=== PATIENT | male | born 1960 | race Caucasian/White ===

== ENCOUNTER 2017-07-01 09:18 | Emergency (ER) | payer OTHER ==
[~2017-07-01] VITALS: Ht 182.9 cm; Wt 81.8 kg
[2017-07-01 09:24] VITALS: BP 162/95; PULSE 86; RESP 15; O2SAT 99
[2017-07-01 09:57] LABS: BASOPHILS % (AUTO) 0.3 % (0-3); EOSINOPHILS % (AUTO) 2.6 % (0-5); MONOCYTES % (AUTO) 8.3 % (4-12); Mean Corpuscular Hemoglobin 30.2 pg (27.0-35.0); Mean Corpuscular Volume 90.3 fL (81-100); NEUTROPHILS % (AUTO) 67.1 % (40-74); Platelet Count 236 bil/L (150-400)
--- NOTE | 2017-07-01 10:03 | ED.REPORT ---
HPI-Chest Pain 40 and Over Date of Service Jul 01, 2017 ED Provider: Gaetano Renteria Patient is a 57 year old male who presents to the ED after being referred by his PCP complaining of chest burning and pressure onset 4-5 days ago. His pain is relieved by drinking cold water and exacerbated by deep inspiration and activity. Associated symptoms include fatigue. He denies extremity pain, SOB, vomiting, diarrhea, ankle swelling, or any other symptoms. He took Advil at home without relief. Nursing Notes Stated Complaint: CHEST PRESSURE/BURNING FEELING Chief Complaint: Chest Pain Nursing Notes Reviewed: Yes Allergies: Coded Allergies: No Known Allergies (Unverified , 07/01/17) Scheduled PRN Ibuprofen (Ibuprofen) 800 Mg Tablet 800 MG PO TID PRN PRN For Pain General Time Seen by MD: 10:02 Chief Complaint Chest pressure Hx Obtained From: Patient Arrived By: Walk-in Sudden in Onset?: Yes Onset Occurred: 4 days ago Symptom Duration: Intermittent Similar Sx Previous: No Risk Factors )( CAD Risk Stratification No Diabetes mellitus, No Hyperlipidemia, No Hypertension Risk factors reviewed )( TAD Risk Stratification No Hypertension, No Risk factors reviewed )( PE Risk Stratification No , No , No Previous PE, No Surgery Last 60 Days Risk factors reviewed Past Medical History Past Medical History Denies Past Surgical History Jaw surgery Smoking History Current Every Day Smoker Social History Other Social History: Good social support, Ambulatory Status Independent Review of Systems Constitutional: Reports: Fatigue Respiratory: Denies: Shortness of breath Cardiovascular: Reports: Chest pain GI: Denies: Diarrhea, Vomiting Musculoskeletal: Denies: Extremity pain, Joint swelling Complete sys rev & neg: except as marked. Physical Exam Initial Vital Signs Vital Signs (First) Date Time Temp Pulse Resp B/P Pulse Ox O2 Delivery O2 Flow Rate FiO2 07/01/17 09:24 36.3 86 15 162/95 99 Room Air Initial VS: Reviewed, Vital signs normal Head / Eyes: Atraumatic, Normocephalic Skin: Warm, Dry Neurologic: Alert, Oriented, Nonfocal Psychiatric: Mood/affect normal, Behavior normal, Normal thought content General/Constitutional: Awake, Alert, No acute distress Respiratory / Chest: Atraumatic, Breath sounds NL, Breath sounds = bilat, No respiratory distress Cardiovascular: Heart rate NL, Regular rhythm, Heart sounds NL, No murmurs, No rubs Abdomen: Atraumatic, Soft, Non-tender Neck: Full range of motion, No JVD Lower Extremity / Pelvis / MS: No edema no unilateral leg swelling Interpretation & Diagnostics Lab Results Interpretation Result Diagram: 07/01/17 0955 07/01/17 0955 Test 07/01/17 09:55 White Blood Count 6.9th/mm3 (3.8-10.1) Red Blood Count 4.86mil/mm3 (4.40-5.80) Hemoglobin 14.7g/dL (13.8-17.2) Hematocrit 43.9% (41.0-50.0) Mean Corpuscular Volume 90.3fL (81-100) Mean Corpuscular Hemoglobin 30.2pg (27.0-35.0) Mean Corpuscular Hemoglobin Concent 33.5% (32.0-37.0) Red Cell Distribution Width 12.7% (12.3-15.4) Platelet Count 236bil/L (150-400) Neutrophils (%) (Auto) 67.1% (40-74) Lymphocytes (%) (Auto) 21.6% (14-46) Monocytes (%) (Auto) 8.3% (4-12) Eosinophils (%) (Auto) 2.6% (0-5) Basophils (%) (Auto) 0.3% (0-3) D-Dimer < 0.50mg/L FEU (<0.50) Sodium Level 140mEq/L (134-144) Potassium Level 4.0mEq/L (3.5-5.2) Chloride Level 100mEq/L (97-108) Carbon Dioxide Level 25mmol/L (18-29) Blood Urea Nitrogen 10mg/dL (6-24) Creatinine 0.85mg/dL (0.76-1.27) Estimat Glomerular Filtration Rate 99mL/min (>59) Glucose Level 124mg/dL (60-99) Calcium Level 9.2mg/dL (8.5-10.1) Magnesium Level 1.9mg/dL (1.6-2.6) Total Bilirubin 0.7mg/dL (0.0-1.2) Aspartate Amino Transf (AST/SGOT) 19U/L (0-50) Alanine Aminotransferase (ALT/SGPT) 16U/L (0-44) Alkaline Phosphatase 55U/L (25-150) Troponin T 0.010ug/L (0.0-0.011) Total Protein 6.7g/dL (6.4-8.4) Albumin 4.2g/dL (3.4-5.0) ECG Interpretation ECG Interpretation: sinus rate [address] elevation hyperacute T waves V3-6 with no reciprocal changes Time: 10:08 Interpreted by: ED physician ECG Interpretation: sinus rate 69 no acute ischemic changes subtle ND depression Time: 10:47 Interpreted by: ED physician X-Ray Chest Interpretation Chest Xray Interpretation: IMPRESSION: Normal for age, source of pain is not seen. Dictated by: Velasquez Xie M.D. on 07/01/2017 at 10:59 Approved by: Velasquez Xie M.D. on 07/01/2017 at 10:59 View: Portable, 1 view Interpretation / Wet Read by: Interpret - Radiologist Re-Eval/Medical Decision Med Decision/Clinical Course Findings are suspicious for pericarditis. After 4 days of ongoing constant pain his troponin is negative. Other clinical features sound more consistent with pericarditis, this along with the EKG changes which could represent pericarditis. I discussed with cardiology who reviewed his echocardiogram. We will plan to treat with ibuprofen and discharge. Return and follow-up precautions given. Time of Eval: 11:11 Re-Evaluation/Progress Note: Rechecked pt who reports that his pain is relieved by sitting forward. Discussed plan of care. Patient understands and agrees with plan. All questions addressed at this time. Time of Eval: 13:00 Re-Evaluation/Progress Note: Rechecked patient. Discussed lab and imaging results. Time of Eval: 13:12 Re-Evaluation/Progress Note: Discussed plan for discharge. Patient understands and agrees with plan. All questions addressed at this time. Consultation #1: Referral / Consult Name: Danny Gambino MD Call Returned at: 13:03 Note: Discussed pt's case. Will review imaging. Consultation #2: Referral / Consult Name: Danny Gambino MD Consulted With: Cardiology Call Returned at: 13:09 Note: Discussed pt's case. Pericarditis probable. treat with nsaids and rest return of worse, safe to DC Counseled Regarding: Diagnosis, Lab results, Need for follow-up, When/why to return to ED Discharge & Departure Primary Impression: Pericarditis Pericarditis type: unspecified type Chronicity: unspecified Qualified Code : I31.9 - Disease of pericardium, unspecified Disposition: Home Discharge Condition All VS Reviewed: Yes Condition: Stable Patient Instructions: Acute Pericarditis (ED) Additional Instructions: You have pericarditis. Take ibuprofen 800 mg 3 times a day. Follow-up with your primary care and cardiology in the next few days. Stay off of work in order to rest. Return to the ER as needed for severe worsening pain, difficulty breathing, lethargy, high fever or other concerns Referrals: Nila Valencia MD Attestation Portions of this note were transcribed by Yasmine Chang. I, Dr. Renteria personally performed the history, physical exam and medical decision-making; I reviewed and confirmed the accuracy of the information in the transcribed note. Signed by: Mitra Wood, 07/01/17 copies to: Nila Valencia MD, Timothy S DO Jul 01, 2017 10:03 YASMINE CHANG Jul 01, 2017 10:47
[2017-07-01] MEDS ORDERED: Nitroglycerin 2% 1 Gm Ointment TOPICAL SCH (10:15)
[2017-07-01] MEDS ORDERED: Ondansetron 2 mg/mL 2 mL Inj IVPUSH PRN (10:15)
[2017-07-01 10:36] LABS: TROPONIN T 0.01 ug/L (0.0-0.011)
[2017-07-01 10:38] VITALS: BP 129/78; PULSE 74; RESP 18; O2SAT 99
[2017-07-01 10:47] LABS: Magnesium 1.9 mg/dL (1.6-2.6)
[2017-07-01] MEDS ORDERED: Ketorolac 15 mg/mL Inj IVPUSH ONE (10:55)
[2017-07-01] MEDS ORDERED: LidocaineVisc 2%:Antacid 1:1 10 mL Syringe PO ONE (11:00)
--- NOTE | 2017-07-01 11:01 | DRSVH ---
PROCEDURE: X-RAY CHEST ONE VIEW, PORTABLE ([id number]) INDICATIONS: CP WORSE WITH BREATHING TECHNIQUE: One view of the chest was acquired. COMPARISON: None. FINDINGS: Surgical changes and devices: None. Lungs and pleura: No pleural effusions or pneumothorax. Lungs are clear. Mediastinum: Mediastinal contours appear normal. Heart size is normal. Bones and chest wall: No suspicious bony lesions. Overlying soft tissues appear unremarkable. IMPRESSION: Normal for age, source of pain is not seen. Dictated by: Velasquez Xie M.D. on 07/01/2017 at 10:59 Approved by: Velasquez Xie M.D. on 07/01/2017 at 10:59
[2017-07-01 11:54] VITALS: BP 118/78; PULSE 64; RESP 18; O2SAT 99
--- NOTE | 2017-07-01 13:08 | DRSVH ---
[facility] [address] [place] [address] Echocardiogram Report Name: TANNER LITTLE JStudy Date: 07/01/2017Height: 72 in Hospital Exam Location: [facility] Weight: 180 lb Gender: Male BSA: 2.0 m2 : 1960 Age: 57 yrs BP: 129/78 mmHg Reason For Study: Chest pain Referring Physician: LAURYN GREEN Interpretation Summary The left ventricle is normal in size, wall thickness, and systolic function without any focal wall motion abnormalities. The ejection fraction is estimated to be 60-65%. Left ventricular wall motion is normal. The right ventricle is normal in size, thickness and function. There is no pericardial effusion. The echocardiogram is within normal limits. Procedure: A two-dimensional transthoracic echocardiogram with color flow and Doppler was performed. The study quality was technically adequate. There is no prior echocardiogram noted for this patient. The patient was in normal sinus rhythm during the exam. Left Ventricle: The left ventricle is normal in size. There is normal left ventricular wall thickness. The left ventricle is normal in size, wall thickness, and systolic function without any focal wall motion abnormalities. The ejection fraction is estimated to be 60-65%. Left ventricular wall motion is normal. Right Ventricle: The right ventricle is normal in size, thickness and function. Atria: The left atrial size is normal. Right atrial size is normal. The interatrial septum is intact with no evidence for an atrial septal defect. Mitral Valve: The mitral valve is normal. There is no mitral regurgitation noted. Aortic Valve: The aortic valve is normal in structure and function. No aortic regurgitation is present. Tricuspid Valve: The tricuspid valve is normal. Pulmonary artery pressures cannot be estimated because of the lack of a measurable TR jet velocity. Pulmonic Valve: The pulmonic valve is not well visualized. Great Vessels: The aortic root is normal size. The ascending aorta is mildly enlarged. The pulmonary artery is normal size. The IVC is of normal diameter and collapses greater than 50% with a sniff. This suggests a low right atrial pressure of 3 mm Hg. Pericardium/ Pleura There is no pericardial effusion. There is no pleural effusion. MMode/2D Measurements & Calculations LVIDd: 4.1 cm RA long axis LVOT diam: 2.3 cm LVIDs: 2.9 cm LA A2 area: 14.5 cm AoV Opening FS: 30.0 % LA A4 area: 9.4 cm RA area EPSS: 0.43 cm LA length (vol) Ao root diam IVSd: 1.0 cm : 13.7 cm LVPWd: 0.96 cm LA vol: 34.1 ml RA vol asc Aorta Diam LA vol index : 37.3 ml RA Ao Arch Diam (Prox : 18.3 mm2 Trans): 2.1 cm IVC diam: 2.1 cm LV stuart. diameter/BSA LV sys. diameter/BSA (cm/m^2): 2.0 (cm/m^2): 1.4 Doppler Measurements & Calculations Ao V2 max: 129.3 cm/secMV E max pillo MV E/A: 1.00 PA V2 max Ao max P.7 mmHg : 59.6 cm/sec Med Peak E' Pillo : 83.7 cm/sec Ao mean P.5 mmHg MV A max plilo PA mean PG LVOT Max Pillo : 59.8 cm/sec E/E' med: 9.6 : 1.4 mmHg : 107.8 cm/sec Lat Peak E' Pillo ALVIN(I,D): 3.4 cm E/E' lat: 8.2 sev ratio: 0.80 E/e' average: 8.9 MV dec time: 0.20 sec Ao V2 mean LV V1 max PG PA V2 mean : 88.6 cm/sec : 57.1 cm/sec Ao V2 VTI LV V1 VTI: 20.2 cmPA pr(Accel) : -0.41 mmHg ALVIN(V,D): 3.6 cm2 ALVIN indexed to [facility] (cm^2/m^2): 1.7 Reading Physician:01:08 PM
[2017-07-01] MEDS ORDERED: IBUP800T28 PO (13:22)
[2017-07-01 13:35] VITALS: BP 120/72; PULSE 62; RESP 18; O2SAT 99
== END 2017-07-01 13:36 | disposition home or self-care (01) ==
LOC: SED 09:18
DX: I31.9 Disease of pericardium, unspecified (principal); F17.200 Nicotine dependence, unspecified, uncomplicated
CPT/HCPCS: 36415; 71010; 80053; 83735; 84484; 85025; 85378; 93005; 96374; 96375; 99285; C8929; J1885